=== PATIENT | female | born 1960 | race African-American/Black ===

== ENCOUNTER 2019-11-07 18:37 | Emergency (ER) | payer BC, OTHER ==
[~2019-11-07] VITALS: Ht 170.2 cm; Wt 69.9 kg
[~2019-11-07 18:37] MED LIST: NORCO5 PO; RIZA10TA22 PO; VITD2000 PO
[2019-11-07] MEDS ORDERED: NACL 0.9% 1,000 ML IV ONE (18:40)
[2019-11-07] MEDS ORDERED: DIPHENHYDRAMINE INJ 50 MG/ML VIAL IVP ONE (18:45)
[2019-11-07] MEDS ORDERED: ONDANSETRON HCL 4 MG/2 ML VIAL IVP ONE (18:45)
[2019-11-07] MEDS ORDERED: KETOROLAC TROMETHAMINE 30 MG VIAL IVP ONE (18:45)
[2019-11-07] MEDS ORDERED: METF-380 PO (18:54)
[2019-11-07] MEDS ORDERED: PROG100C11 PO (18:55)
[2019-11-07 18:56] VITALS: BP_SYST 139
[2019-11-07 19:24] LABS: BASOPHILS % (AUTO) 0.5 % (0.0-2.0); EOSINOPHILS % (AUTO) 0.8 % (0.0-4.0); HEMATOCRIT 42.3 % (36-48); HEMOGLOBIN 14.2 g/dL (12.0-16.0); LYMPHOCYTES # (AUTO) 1.9 K/uL (1.0-5.5); LYMPHOCYTES % (AUTO) 39.7 % (20.5-51.5); MEAN CORPUSCULAR HEMOGLOBIN 31 pg (27-31); MEAN CORPUSCULAR HGB CONC 34 % (32-36); MEAN CORPUSCULAR VOLUME 92 fL (79.0-98.0); MONOCYTES # (AUTO) 0.4 K/uL (0.0-1.0); MONOCYTES % (AUTO) 8.8 % (1.7-9.3); NEUTROPHILS # (AUTO) 2.4 K/uL (1.8-7.7); NEUTROPHILS % (AUTO) 50.2 % (40.0-70.0); PLATELET COUNT (AUTO) 255 K/uL (130-430); RED BLOOD CELL COUNT(AUTO) 4.62 MIL/uL (4.2-6.2); RED CELL DISTRIBUTION WIDTH 13.7 % (9.0-15.0); WHITE BLOOD COUNT (AUTO) 4.7 K/uL (4.8-10.8)
[2019-11-07 19:27] LABS: CALCIUM 8.6 mg/dL (8.4-11.0); CREATININE 1.09 mg/dL (0.55-1.30); POTASSIUM 3.6 mmol/L (3.5-5.1)
[2019-11-07 19:30] LABS: INR 0.9 (0.8-1.2); PROTHROMBIN TIME 9.5 SECS (9.5-12.5)
[2019-11-07 19:33] LABS: ALBUMIN 3.5 g/dL (3.4-4.8); TOTAL BILIRUBIN 0.6 mg/dL (0.0-1.0)
[2019-11-07 20:55] LABS: BILIRUBIN,URINE NEGATIVE (NEGATIVE); BLOOD, URINE NEGATIVE (NEGATIVE); CLARITY/URINE CLEAR (CLEAR); COLOR,URINE YELLOW (YELLOW); GLUCOSE,URINE NEGATIVE (NEGATIVE); KETONES,URINE NEGATIVE (NEGATIVE); LEUKOCYTE ESTERASE ,URINE NEGATIVE (NEGATIVE); NITRITE, URINE NEGATIVE (NEGATIVE); PH,URINE 5.5 (5.0-8.0); PROTEIN URINE NEGATIVE (NEGATIVE); UROBILINOGEN,URINE 0.2 (0.2-1.0)
[2019-11-07 21:12] VITALS: BP_SYST 128
== END 2019-11-07 21:12 | disposition home or self-care (01) ==
LOC: SED 18:37
DX: G44.209 Tension-type headache, unspecified, not intractable (principal); R42 Dizziness and giddiness; E86.0 Dehydration; J45.909 Unspecified asthma, uncomplicated; I10 Essential (primary) hypertension; F41.9 Anxiety disorder, unspecified; E78.00 Pure hypercholesterolemia, unspecified; Z86.73 Personal history of transient ischemic attack (TIA), and cerebral infarction without residual deficits; Z86.2 Personal history of diseases of the blood and blood-forming organs and certain disorders involving the immune mechanism; Z79.899 Other long term (current) drug therapy
CPT/HCPCS: 36415; 71045; 80053; 81003; 82150; 82550; 83605; 83690; 83880; 84484; 85025; 85610; 85730; 87040; 93005; 96361; 96374; 96375; 99285; J1200; J1885; J2405; J7030

== ENCOUNTER 2022-09-05 12:48 | Inpatient (IN) | payer OTHER ==
[~2022-09-05] VITALS: Ht 167.6 cm; Wt 78.6 kg
[2022-09-05 12:48] VITALS: BP_SYST 142
[~2022-09-05 12:48] MED LIST changes: +METF-380 PO; -NORCO5 PO; +PROG100C11 PO
[2022-09-05] MEDS ORDERED: ASPIRIN 81 MG TAB.CHEW PO ONE (13:00)
[2022-09-05] MEDS ORDERED: NITROGLYCERIN 0.4 MG TAB.SUBL SL ONE (13:22)
[2022-09-05 13:40] LABS: BASOPHILS % (AUTO) 0.7 % (0.0-2.0); HEMATOCRIT 38.9 % (36-48); HEMOGLOBIN 12.9 g/dL (12.0-16.0); LYMPHOCYTES # (AUTO) 1.7 K/uL (1.0-5.5); LYMPHOCYTES % (AUTO) 47.3 % (20.5-51.5); MEAN CORPUSCULAR HEMOGLOBIN 30 pg (27-31); MEAN CORPUSCULAR HGB CONC 33 % (32-36); MEAN CORPUSCULAR VOLUME 89 fL (79.0-98.0); MONOCYTES # (AUTO) 0.4 K/uL (0.0-1.0); MONOCYTES % (AUTO) 10.2 % (1.7-9.3); NEUTROPHILS # (AUTO) 1.4 K/uL (1.8-7.7); NEUTROPHILS % (AUTO) 40.8 % (40.0-70.0); PLATELET COUNT (AUTO) 254 K/uL (130-430); RED BLOOD CELL COUNT(AUTO) 4.38 MIL/uL (4.2-6.2); RED CELL DISTRIBUTION WIDTH 13.3 % (9.0-15.0); WHITE BLOOD COUNT (AUTO) 3.5 K/uL (4.8-10.8)
[2022-09-05 14:33] LABS: ANION GAP 7 (5-15); CALCIUM 8.8 mg/dL (8.4-11.0); CHLORIDE 106 mmol/L (98-107); CREATININE 0.59 mg/dL (0.55-1.30); GLUCOSE 124 mg/dL (70-99); UREA NITROGEN, BLOOD 15 mg/dL (8-21)
[2022-09-05 14:37] LABS: GFR AFRICAN AMERICAN 132 mL/min (>90)
[2022-09-05 14:40] LABS: ALANINE AMINOTRANSFERASE 24 U/L (12-78); ALBUMIN 3.6 g/dL (3.4-4.8); ASPARTATE AMINOTRANSFERASE 17 U/L (10-37); TOTAL BILIRUBIN 0.4 mg/dL (0.0-1.0)
[2022-09-05] MEDS ORDERED: ACETAMINOPHEN 325 MG TABLET PO PRN ×3 (18:15→22:30)
[2022-09-05] MEDS ORDERED: ACETAMINOPHEN 325 MG TABLET ONE (18:30)
[2022-09-05] MEDS ORDERED: VITD2000 PO (20:41)
[2022-09-05] MEDS ORDERED: LIP10 PO (20:41)
[2022-09-05 21:15] VITALS: BP_SYST 135
[2022-09-05] MEDS ORDERED: LORazepam 2 MG/ML VIAL IVP PRN (22:30)
[2022-09-05] MEDS ORDERED: NALOXONE HCL 0.4 MG/ML AMP (NARCAN) IVP PRN ×2 (22:30)
[2022-09-05] MEDS ORDERED: HYDROcodone/ACETAMIN 5-325 MG TAB (NORCO/ VICODIN) PO PRN (22:30)
[2022-09-05] MEDS ORDERED: INSULIN REGULAR, HUMAN 100 UNITS/ML, 3 ML VIAL (humuLIN R) SUBCUT PRN (22:30)
[2022-09-05] MEDS ORDERED: ONDANSETRON HCL 4 MG/2 ML VIAL IVP PRN (22:30)
[2022-09-05] MEDS ORDERED: RIZATRIPTAN BENZOATE PO SCH (22:30)
[2022-09-05 23:25] VITALS: BP_SYST 114
[2022-09-05] MEDS: HYDROcodone/ACETAMIN 10-325 MG TAB PO PRN (23:26)
[2022-09-06] MEDS ORDERED: iohexoL 350 mgI/mL, 100 ML INFUS..BTL IV ONE (00:41)
[2022-09-06 01:16] LABS: ALBUMIN 3.4 g/dL (3.4-4.8); CALCIUM 8.7 mg/dL (8.4-11.0); CREATININE 0.79 mg/dL (0.55-1.30); TOTAL BILIRUBIN 0.4 mg/dL (0.0-1.0)
[2022-09-06 01:17] LABS: BASOPHILS % (AUTO) 0.7 % (0.0-2.0); EOSINOPHILS # (AUTO) 0.1 K/uL (0.0-0.4); EOSINOPHILS % (AUTO) 1.1 % (0.0-4.0); HEMATOCRIT 38.7 % (36-48); HEMOGLOBIN 12.9 g/dL (12.0-16.0); LYMPHOCYTES # (AUTO) 2.4 K/uL (1.0-5.5); LYMPHOCYTES % (AUTO) 50.9 % (20.5-51.5); MEAN CORPUSCULAR HEMOGLOBIN 29 pg (27-31); MEAN CORPUSCULAR HGB CONC 33 % (32-36); MEAN CORPUSCULAR VOLUME 88 fL (79.0-98.0); MONOCYTES # (AUTO) 0.5 K/uL (0.0-1.0); MONOCYTES % (AUTO) 11.1 % (1.7-9.3); NEUTROPHILS # (AUTO) 1.7 K/uL (1.8-7.7); NEUTROPHILS % (AUTO) 36.2 % (40.0-70.0); PLATELET COUNT (AUTO) 281 K/uL (130-430); RED CELL DISTRIBUTION WIDTH 13.2 % (9.0-15.0); WHITE BLOOD COUNT (AUTO) 4.7 K/uL (4.8-10.8)
[2022-09-06 01:19] LABS: PROTHROMBIN TIME 10.2 SECS (9.5-12.5)
[2022-09-06] MEDS ORDERED: NORMAL SALINE 5 ML DISP.SYRIN IVF SCH ×2 (06:00)
[2022-09-06] MEDS: HYDROcodone/ACETAMIN 10-325 MG TAB PO PRN (06:29)
[2022-09-06 08:00] VITALS: BP_SYST 124
[2022-09-06 08:10] LABS: BASOPHILS % (AUTO) 0.2 % (0.0-2.0); EOSINOPHILS % (AUTO) 1.1 % (0.0-4.0); HEMOGLOBIN 13.4 g/dL (12.0-16.0); LYMPHOCYTES # (AUTO) 2.2 K/uL (1.0-5.5); MEAN CORPUSCULAR HEMOGLOBIN 30 pg (27-31); MEAN CORPUSCULAR HGB CONC 34 % (32-36); MEAN CORPUSCULAR VOLUME 87 fL (79.0-98.0); MONOCYTES # (AUTO) 0.5 K/uL (0.0-1.0); MONOCYTES % (AUTO) 10.3 % (1.7-9.3); NEUTROPHILS # (AUTO) 1.8 K/uL (1.8-7.7); NEUTROPHILS % (AUTO) 39.4 % (40.0-70.0); PLATELET COUNT (AUTO) 252 K/uL (130-430); RED BLOOD CELL COUNT(AUTO) 4.49 MIL/uL (4.2-6.2); RED CELL DISTRIBUTION WIDTH 13.4 % (9.0-15.0); WHITE BLOOD COUNT (AUTO) 4.5 K/uL (4.8-10.8)
[2022-09-06 08:35] LABS: CALCIUM 8.7 mg/dL (8.4-11.0); CREATININE 0.66 mg/dL (0.55-1.30); PHOSPHORUS 4.2 mg/dL (2.7-4.5); THYROID STIMULATING HORMONE 2.34 uIu/mL (0.34-4.82)
[2022-09-06] MEDS ORDERED: PROGESTERONE MICRONIZED PO SCH (09:00)
[2022-09-06] MEDS ORDERED: CHOLECALCIFEROL (VITAMIN D3) 2,000 UNIT TABLET PO SCH ×2 (09:00)
[2022-09-06 11:29] VITALS: BP_SYST 118
[2022-09-06 15:34] VITALS: BP_SYST 123
[2022-09-06] MEDS ORDERED: LIDOCAINE TOPICAL OINT 5%, 35 GM TP PRN (16:15)
[2022-09-06 17:42] VITALS: BP_SYST 124
[2022-09-06] MEDS ORDERED: ATORVASTATIN 10 MG TABLET PO SCH (21:00)
== END 2022-09-06 18:10 | disposition home or self-care (01) | DRG 206 ==
LOC: SED 12:48 → STU 18:06
PROVIDERS: ADMIT Preventive Medicine Preventive Medicine/Occupational Environmental Medicine; ATTEND Preventive Medicine Preventive Medicine/Occupational Environmental Medicine
DX: M94.0 Chondrocostal junction syndrome [Tietze] (principal); J45.909 Unspecified asthma, uncomplicated; F41.0 Panic disorder [episodic paroxysmal anxiety]; F41.9 Anxiety disorder, unspecified; R73.03 Prediabetes; D64.9 Anemia, unspecified; D72.819 Decreased white blood cell count, unspecified; R01.1 Cardiac murmur, unspecified; Z20.822 Contact with and (suspected) exposure to COVID-19; R73.9 Hyperglycemia, unspecified; F32.A Depression, unspecified; G43.909 Migraine, unspecified, not intractable, without status migrainosus; Z91.018 Allergy to other foods; Z79.899 Other long term (current) drug therapy
CPT/HCPCS: 36415; 70450-TC; 70496; 70498; 71045; 76376; 80048; 80053; 80061; 83037; 83735; 83880; 84100; 84443; 84484; 85025; 85379; 85610-TC; 85730-TC; 87081; 93005; 93306; 99285; G0378; Q9967

== ENCOUNTER 2023-02-28 18:40 | Emergency (ER) | payer BC, OTHER ==
[~2023-02-28] VITALS: Ht 167.6 cm; Wt 74.8 kg
[~2023-02-28 18:40] MED LIST changes: +LIP10 PO
[2023-02-28 19:14] VITALS: BP_SYST 118; PULSE 92; RESP 18; TEMP 97.1; O2SAT 96
[2023-02-28 20:54] LABS: BASOPHILS # (AUTO) 0.1 K/uL (0.0-0.2); BASOPHILS % (AUTO) 1.4 % (0.0-2.0); EOSINOPHILS # (AUTO) 0.1 K/uL (0.0-0.4); EOSINOPHILS % (AUTO) 1.6 % (0.0-4.0); HEMATOCRIT 38.8 % (36-48); HEMOGLOBIN 12.6 g/dL (12.0-16.0); LYMPHOCYTES # (AUTO) 2.8 K/uL (1.0-5.5); LYMPHOCYTES % (AUTO) 57.3 % (20.5-51.5); MEAN CORPUSCULAR HEMOGLOBIN 29 pg (27-31); MEAN CORPUSCULAR HGB CONC 33 % (32-36); MEAN CORPUSCULAR VOLUME 88 fL (79.0-98.0); MONOCYTES # (AUTO) 0.6 K/uL (0.0-1.0); MONOCYTES % (AUTO) 11.5 % (1.7-9.3); NEUTROPHILS # (AUTO) 1.4 K/uL (1.8-7.7); NEUTROPHILS % (AUTO) 28.2 % (40.0-70.0); PLATELET COUNT (AUTO) 324 K/uL (130-430); RED BLOOD CELL COUNT(AUTO) 4.41 MIL/uL (4.2-6.2); RED CELL DISTRIBUTION WIDTH 13.5 % (9.0-15.0); WHITE BLOOD COUNT (AUTO) 4.9 K/uL (4.8-10.8)
[2023-02-28 21:09] LABS: CALCIUM 8.8 mg/dL (8.4-11.0); CREATININE 0.77 mg/dL (0.55-1.30); POTASSIUM 4.1 mmol/L (3.5-5.1)
[2023-02-28 21:15] LABS: ALBUMIN 3.5 g/dL (3.4-4.8); TOTAL BILIRUBIN 0.4 mg/dL (0.0-1.0); TOTAL PROTEIN, SERUM 6.9 g/dL (6.4-8.3)
[2023-02-28 22:06] LABS: INR 0.9 (0.8-1.2); PROTHROMBIN TIME 9.7 SECS (9.5-12.5)
[2023-02-28 22:10] LABS: CREATINE KINASE, TOTAL 94 U/L (26-192)
[2023-02-28 22:29] LABS: BILIRUBIN,URINE NEGATIVE (NEGATIVE); BLOOD, URINE NEGATIVE (NEGATIVE); CLARITY/URINE CLEAR (CLEAR); COLOR,URINE YELLOW (YELLOW); GLUCOSE,URINE TRACE (NEGATIVE); KETONES,URINE TRACE (NEGATIVE); LEUKOCYTE ESTERASE ,URINE NEGATIVE (NEGATIVE); NITRITE, URINE NEGATIVE (NEGATIVE); PROTEIN URINE NEGATIVE (NEGATIVE)
[2023-02-28] MEDS ORDERED: ONDA8TAB60 PO (22:59)
[2023-02-28] MEDS ORDERED: IBUP-1971 PO (22:59)
[2023-02-28] MEDS ORDERED: MECL-108 PO (22:59)
[2023-02-28] MEDS ORDERED: ONDANSETRON 4 MG ODT TAB PO ONE (23:00)
[2023-02-28] MEDS ORDERED: KETOROLAC TROMETHAMINE 60 MG/2 ML VIAL IM ONE (23:00)
[2023-02-28 23:21] LABS: BACTERIA,URINE FEW /HPF (None Seen); MUCUS,URINE 1+ /LPF (None Seen); RBC,URINE 0-3 /HPF (0-3); WBC,URINE 0-3 /HPF (0-3)
[2023-02-28 23:57] VITALS: BP_SYST 118; PULSE 72; RESP 17; TEMP 98.2; O2SAT 98
[2023-03-01] MEDS ORDERED: MECL-108 PO (01:04)
[2023-03-01] MEDS ORDERED: IBUP-1971 PO (01:04)
[2023-03-01] MEDS ORDERED: ONDA8TAB60 PO (01:04)
== END 2023-02-28 23:57 | disposition home or self-care (01) ==
LOC: SED 18:40
DX: H81.11 Benign paroxysmal vertigo, right ear (principal); R51.9 Headache, unspecified; R11.0 Nausea; J45.909 Unspecified asthma, uncomplicated; E11.9 Type 2 diabetes mellitus without complications; Z91.018 Allergy to other foods; Z79.899 Other long term (current) drug therapy
CPT/HCPCS: 99285; 70450; 71045; 80053; 81000; 82550; 85025; 85610; 85730; 84484; 36415; 93005; 76376; 96372; Q0162; J1885